=== PATIENT | male | born 1970 | race Caucasian/White ===

== ENCOUNTER 2017-09-14 17:36 | Emergency (ER) | payer OTHER ==
[~2017-09-14] VITALS: Ht 172.7 cm; Wt 88.5 kg
[2017-09-14] MEDS ORDERED: HYDROcodone-ACET 10/325MG TAB PO ONE (21:45)
[2017-09-14 21:48] VITALS: BP 127/79
== END 2017-09-14 21:56 | disposition home or self-care (01) ==
LOC: ER 17:43
DX: S06.0X0A Concussion without loss of consciousness, initial encounter (principal); Y09 Assault by unspecified means; Y93.89 Activity, other specified; Y99.8 Other external cause status; Y92.89 Other specified places as the place of occurrence of the external cause
CPT/HCPCS: 70450; 70486